=== PATIENT | female | born 2000 | race Caucasian/White ===

== ENCOUNTER 2022-07-27 09:27 | Emergency (ER) | payer MEDICAID ==
[~2022-07-27] VITALS: Ht 165.1 cm; Wt 83.9 kg
[2022-07-27 09:30] VITALS: BP_SYST 131
--- NOTE | 2022-07-27 09:30 | NUR ---
BROUGHT INTO TRIAGE TENT AND TRIAGED. AWAITING ER BED
--- NOTE | 2022-07-27 09:48 | NUR ---
DR DOUGLAS TO OUTSIDE TENT FOR EVALUATION
--- NOTE | 2022-07-27 09:49 | NUR ---
PT STATES 1 WEEK AND 4 DAYS WITH COUGH AND CONGESTION, STATES SHE WAS SEEN LAST WEEK AT [facility] AND GIVEN AN ALBUTEROL INHALER. STATES SHE REALLY WANTED A CHEST XRAY. PT STATES SHE IS NOT GETTING BETTER AND WOULD NOW LIKE A CHEST XRAY.
--- NOTE | 2022-07-27 11:17 | NUR ---
COVID AND FLU SWAB OBTAINED AND SENT TO LAB
[2022-07-27] MEDS ORDERED: IBUP-1969 PO (12:35)
[2022-07-27] MEDS ORDERED: PSEU30TA36 PO (12:35)
[2022-07-27 12:46] VITALS: BP_SYST 131
--- NOTE | 2022-07-27 12:46 | NUR ---
Patient given written and verbal discharge instructions and verbalizes understanding. ER MD discussed with patient the results and treatment provided. Patient in stable condition. ID arm band removed. Rx of sudafed and ibuprofen given. Patient educated on pain management and to follow up with PMD. Pain Scale . Opportunity for questions provided and answered. Medication side effect fact sheet provided.
== END 2022-07-27 12:46 | disposition home or self-care (01) ==
LOC: SED 09:27
DX: J40 Bronchitis, not specified as acute or chronic (principal); R05.9 Cough, unspecified; R09.81 Nasal congestion; Z79.899 Other long term (current) drug therapy; Z20.822 Contact with and (suspected) exposure to COVID-19
CPT/HCPCS: 36415; 71045; 99284